=== PATIENT | female | born 1965 | race Caucasian/White ===

== ENCOUNTER 2017-01-07 19:19 | Emergency (ER) | payer OTHER ==
[2017-01-07 19:59] LABS: BILIRUBIN NEGATIVE (NEGATIVE); BLOOD NEGATIVE Ery/uL (NEGATIVE); CLARITY CLEAR (CLEAR); COLOR YELLOW (YELLOW); GLUCOSE (U) NORMAL (NORMAL); KETONE (U) NEGATIVE (NEGATIVE); LEUKOCYTES NEGATIVE Leu/uL (NEGATIVE); NITRITE NEGATIVE (NEGATIVE); PROTEIN TRACE (LOW) mg/dL (NEGATIVE); SPECIFIC GRAVITY 1.015 (1.001-1.030); UROBILINOGEN 0.2 mg/dL (0.2-1.0)
[2017-01-07 20:07] LABS: BASOPHIL 0.2 % (0-2); EOSINOPHIL 0.1 % (0-5); HCT 42.5 % (37.0-47.0); HGB 14.4 g/dl (12.5-16.0); LYMPHOCYTE 15.5 % (15-48); MCH 30.3 pg (25.0-31.0); MCHC 33.9 g/dL (32.0-36.0); MCV 89.3 fL (78.0-100.0); MONOCYTE 3.3 % (0-12); NEUTROPHIL 80.9 % (41-80); PLT 376 K/uL (150-400); RBC 4.76 M/uL (4.20-5.40); RDW 13.5 % (11.5-14.0); WBC 11.2 K/uL (4.0-10.5)
[2017-01-07 20:08] LABS: BACTERIA TRACE; SQUAMOUS EPITHELIAL CELLS RARE; URINARY RBC RARE
[2017-01-07 20:09] LABS: MUCOUS TRACE
[2017-01-07 20:27] LABS: CKMB 1.66 ng/mL (0.97-4.94); TROPONIN T < 0.010 ng/mL
[2017-01-07 20:28] LABS: ALBUMIN 4.8 g/dL (3.5-5.0); BILIRUBIN - TOTAL 0.5 mg/dL (0.1-1.0); CREATININE 0.7 mg/dL (0.5-1.0); GLOBULIN (CALCULATION) 2.4 g/dL (2.2-4.2); POTASSIUM 3.7 mmol/L (3.5-5.1); TOTAL PROTEIN 7.2 g/dL (6.4-8.3)
[2017-01-07 20:44] LABS: LACTIC ACID 2.4 mmol/L (0.5-2.2)
[2017-01-07 21:34] LABS: AMPHETAMINES NEGATIVE (NEGATIVE); BARBITURATES NEGATIVE (NEGATIVE); BENZODIAZEPINES NEGATIVE (NEGATIVE); COCAINE NEGATIVE (NEGATIVE); MARIJUANA (THC) NEGATIVE (NEGATIVE); METHADONE NEGATIVE (NEGATIVE); TRICYCLIC ANTIDEPRESSANT NEGATIVE (NEGATIVE)
== END 2017-01-07 22:50 | disposition home or self-care (01) ==
LOC: FER 19:19
PROVIDERS: Emergency Medicine
DX: G43.909 Migraine, unspecified, not intractable, without status migrainosus (principal); I10 Essential (primary) hypertension; E03.9 Hypothyroidism, unspecified; Z88.0 Allergy status to penicillin; Z88.2 Allergy status to sulfonamides; Z88.5 Allergy status to narcotic agent; Z79.899 Other long term (current) drug therapy
CPT/HCPCS: 36415; 71010; 80053; 80305; 81001; 82553; 83605; 84443; 84484; 85025; 87040; 87450; 87804; 87899; 93005; J2270; J2405

== ENCOUNTER 2017-03-11 19:51 | Emergency (ER) | payer OTHER | END 2017-03-11 20:11 | disposition left against medical advice (07) | LOC: FER 19:51 | DX: S09.90XA Unspecified injury of head, initial encounter (principal); R11.0 Nausea; R42 Dizziness and giddiness; W18.39XA Other fall on same level, initial encounter; Z53.8 Procedure and treatment not carried out for other reasons ==

== ENCOUNTER 2017-03-12 11:00 | Emergency (ER) | payer OTHER | END 2017-03-12 13:50 | disposition home or self-care (01) | LOC: FER 11:00 | DX: S06.0X9A Concussion with loss of consciousness of unspecified duration, initial encounter (principal); Z88.2 Allergy status to sulfonamides; Z88.5 Allergy status to narcotic agent; W01.0XXA Fall on same level from slipping, tripping and stumbling without subsequent striking against object, initial encounter; Y92.009 Unspecified place in unspecified non-institutional (private) residence as the place of occurrence of the external cause | CPT/HCPCS: 70450; J1885 ==

== ENCOUNTER 2021-01-15 16:17 | Emergency (ER) | payer OTHER ==
[~2021-01-15 16:17] MED LIST: CEPHALEXIN500 MG PO; FLUOXETINE HCL40 MG PO; LEVAQUIN500 MG PO; ONDANSETRON HCL8 MG PO; PANTOPRAZOLE SO40 MG PO
[2021-01-15] MEDS ORDERED: PERCOCET 5-3251 EACH PO (17:11)
[2021-01-15] MEDS ORDERED: KETOROLAC TROME10 MG PO (17:11)
== END 2021-01-15 17:24 | disposition home or self-care (01) ==
LOC: FER 16:17
DX: G89.18 Other acute postprocedural pain (principal); M79.602 Pain in left arm; E07.9 Disorder of thyroid, unspecified; Z88.0 Allergy status to penicillin; Z88.1 Allergy status to other antibiotic agents; Z88.2 Allergy status to sulfonamides; Z88.5 Allergy status to narcotic agent; Z79.899 Other long term (current) drug therapy; Z98.890 Other specified postprocedural states
CPT/HCPCS: 73090; J1885